=== PATIENT | male | born 1940 | race Caucasian/White ===

== ENCOUNTER 2019-08-31 13:41 | Inpatient (IN) | payer MEDICARE ==
[~2019-08-31] VITALS: Ht 173 cm; Wt 121.0 kg
[~2019-08-31 13:41] MED LIST: ACET473E5 PO; ALDACTONE25 MG PO; ASP81TEC PO; ATEN25TA PO; ATOR20TA66 PO; DILT120C85 PO; FISH1CAP15 PO; FURO80TA3 PO; GLIM2TAB PO; METF-380 PO; NITROQUICK SL; PANT40TA PO; RAMI5CAP PO; TADA2.5T PO; UBID1CAP51 PO; WARF7.5T PO
[2019-08-31 14:03] LABS: BASOPHILS # (AUTO) 0.2 10^3/uL (0.0-0.1); BASOPHILS % (AUTO) 2 % (0-10); EOSINOPHILS # (AUTO) 0.3 10^3/uL (0.0-0.3); EOSINOPHILS % (AUTO) 3 % (0-10); HEMATOCRIT 42 % (40-54); HEMOGLOBIN 14.1 G/DL (13.3-17.7); LYMPHOCYTES # (AUTO) 2.6 X 10^3 (1.0-4.0); LYMPHOCYTES % (AUTO) 29 % (12-44); MEAN CORPUSCULAR HEMOGLOBIN 29 PG (25-34); MEAN CORPUSCULAR HGB CONC 34 G/DL (32-36); MEAN CORPUSCULAR VOLUME 87 FL (80-99); MEAN PLATELET VOLUME 9.3 FL (7.4-10.4); MONOCYTES # (AUTO) 0.9 X 10^3 (0.0-1.0); MONOCYTES % (AUTO) 10 % (0-12); NEUTROPHILS # (AUTO) 4.9 X 10^3 (1.8-7.8); NEUTROPHILS % (AUTO) 56 % (42-75); PLATELET COUNT 308 10^3/uL (130-400); RED CELL DISTRIBUTION WIDTH 13.8 % (10.0-14.5); WHITE BLOOD COUNT 8.9 10^3/uL (4.3-11.0)
--- NOTE | 2019-08-31 14:05 | ED Neurological Problem ---
General Chief Complaint: Neuro-Stroke Like Symptoms Stated Complaint: STROKE LIKE SYMPTOMS Nursing Triage Note: PT STATES NUMBNESS IN LT LIP/FACE, LT ARM, AND LT LEG THAT STATRTED ABOUT 0700 THIS A.M. Nursing Sepsis Screen: No Definite Risk Source: patient Exam Limitations: no limitations History of Present Illness Date Seen by Provider: Aug 31, 2019 Time Seen by Provider: 14:05 Initial Comments To ER per private vehicle from home with reports of strokelike symptoms. He awakened this morning at about 7 AM and noticed himself to be drooling from the left side of his mouth and drinking coffee. He feels like his speech is somewhat slurred, he feels weak in his left arm and has some trouble walking because he states that his left foot drags. He has a history of atrial fibrillation and is on warfarin. He was normal when he went to bed last night. Timing/Duration: other (woke up with symptoms) Severity: moderate Associated Symptoms: slurred speech, trouble walking Allergies and Home Medications Allergies Coded Allergies: Sulfa (Sulfonamide Antibiotics) (Verified Allergy, Unknown, 06/02/06) benzocaine (Verified Allergy, Unknown, ALLERGIC TO "NED", 06/02/06) Uncoded Allergies: NED (Allergy, Unknown, 06/02/06) LOCAL ANESTHETICS (Allergy, Unknown, 06/02/06) Home Medications Acetaminophen With Codeine 1 Ml Elixir, 1 ML PO PRN, (Reported) Aspirin 81 Mg Tabec, 81 MG PO DAILY, (Reported) Atenolol 25 Mg Tablet, 25 MG PO DAILY, (Reported) Atorvastatin 20 Mg Tablet, 40 MG PO DAILY, (Reported) Diltiazem Hcl 120 Mg Capsule.sa, 240 MG PO DAILY, (Reported) Furosemide 80 Mg Tablet, 80 MG PO DAILY, (Reported) Glimepiride 2 Mg Tablet, 2 MG PO DAILY, (Reported) Metformin Hcl 1,000 Mg Tablet, 1 EACH PO DAILY, (Reported) Pantoprazole Sodium 40 Mg Tablet.dr, 40 MG PO DAILY, (Reported) Ramipril 5 Mg Capsule, 5 MG PO DAILY, (Reported) Spironolactone 25 Mg Tablet, 25 MG PO DAILY, (Reported) Tadalafil 2.5 Mg Tablet, 2.5 MG PO PRN, (Reported) Warfarin Sod 7.5 Mg Tablet, 7.5 MG PO DAILY, (Reported) Patient Home Medication List Home Medication List Reviewed: Yes Review of Systems Review of Systems Constitutional: see HPI Eyes: No Symptoms Reported Ears, Nose, Mouth, Throat: no symptoms reported Respiratory: no symptoms reported Cardiovascular: no symptoms reported Genitourinary: no symptoms reported Musculoskeletal: no symptoms reported Skin: no symptoms reported Psychiatric/Neurological: See HPI Endocrine: No Symptoms Reported Past Jzfnjqs-Gaqjol-Wyfdae Hx Patient Social History Recent Foreign Travel: No Contact w/Someone Who Travel: No Recent Infectious Disease Expo: No Physical Abuse: No Sexual Abuse: No Mistreated: No Fear: No Immunizations Up To Date Tetanus Booster (TDap): More than 5yrs Date of Pneumonia Vaccine: Jul 26, 2013 Date of Influenza Vaccine: Jul 26, 2013 Past Medical History Sleep Apnea, COPD Reproductive Disorders: No Diverticulosis, Hemorrhoids Diabetes, Non-Insulin dep Physical Exam Vital Signs Vital Signs - First Documented 08/31/19 13:51 Temp 35.4 Pulse 92 Resp 22 B/P (MAP) 154/97 (116) Pulse Ox 94 O2 Delivery Room Air Capillary Refill : Less Than 3 Seconds Height, Weight, BMI Height: '66.00" Weight: 287lbs. oz. 130.697762mf; 40.00 BMI Method:Stated General Appearance: WD/WN, no apparent distress, other (alert and oriented GCS 15) HEENT: PERRL/EOMI, normal ENT inspection Neck: non-tender, full range of motion Respiratory: normal breath sounds, no respiratory distress, no accessory muscle use Cardiovascular: no murmur, irregularly irregular Gastrointestinal: normal bowel sounds, non tender, soft Extremities: non-tender Neurologic/Psychiatric: alert, normal mood/affect, oriented x 3 Crainal Nerves: normal hearing, normal speech, PERRL Motor/Sensory: pronator drift (L) Skin: normal color, warm/dry Stroke Onset of Symptoms Date of Onset of Symptoms: Aug 31, 2019 Time of Symptom Onset: 07:00 (Woke up with symptoms) NIH Stroke Scale Assessment Level of Consciousness: 0=Alert (0), Level of Consciousness-Questions: 0=Answers both month/age (0), LOC Commands: 0=Performs both tasks (0), Visual Perkins: 0=No visual loss (0), Motor Function-Arms Right: 0=No drift (0), Motor Function-Arms Left: 1=Drift (1), Motor Function-Legs Right: 0=No drift (0), Motor Function-Legs Left: 1=Drift (1), Limb Ataxia: 0=Absent (0), Sensory: 0=Normal:no loss (0), Best Language: 0=No aphasia (0), Dysarthria: 1=Mild to moderate loss he reports some slurred speech, he is edentulous and is not wearing his teeth, I do not notice his speech to be slurred but He reports that it is (1), Extinction & Inattention: 0=No abnormality (0), Total: 3 Stroke Thrombolytic Exclusion Age 18 or Over: Yes Acute intenal hemorrhage: No History of CVA: No Uncontrolled Coagulation Defec: No Intracranial Hemorrhage: No Severe Hypertension: No GI or Bleed: No Subarachnoid Hemorrhage: No Intracranial Neoplasm/Aneurysm: No Oral Anticoagulants: Yes (stroke) Surgery or Trauma: No Puncture of Non-Compressible V: No Recent CPR: No Diabetic Hemorrhagic Retinopat: No Organ Biopsy: No Recent Obstetric Delivery: No Glucose: No Significant Hepatic Dysfunctio: No NIH Stoke Scale >22: No Pericarditis: No Improving Symptoms: No Platelets: No TPA Contraindication: Yes Progress/Results/Core Measures Results/Orders Lab Results Laboratory Tests Test 08/31/19 14:00 08/31/19 16:20 Range/Units White Blood Count 8.9 4.3-11.0 10^3/uL Red Blood Count 4.82 4.35-5.85 10^6/uL Hemoglobin 14.1 13.3-17.7 G/DL Hematocrit 42 40-54 % Mean Corpuscular Volume 87 80-99 FL Mean Corpuscular Hemoglobin 29 25-34 PG Mean Corpuscular Hemoglobin Concent 34 32-36 G/DL Red Cell Distribution Width 13.8 10.0-14.5 % Platelet Count 308 130-400 10^3/uL Mean Platelet Volume 9.3 7.4-10.4 FL Neutrophils (%) (Auto) 56 42-75 % Lymphocytes (%) (Auto) 29 12-44 % Monocytes (%) (Auto) 10 0-12 % Eosinophils (%) (Auto) 3 0-10 % Basophils (%) (Auto) 2 0-10 % Neutrophils # (Auto) 4.9 1.8-7.8 X 10^3 Lymphocytes # (Auto) 2.6 1.0-4.0 X 10^3 Monocytes # (Auto) 0.9 0.0-1.0 X 10^3 Eosinophils # (Auto) 0.3 0.0-0.3 10^3/uL Basophils # (Auto) 0.2 H 0.0-0.1 10^3/uL Prothrombin Time 21.2 H 12.2-14.7 SEC INR Comment 1.8 H 0.8-1.4 Activated Partial Thromboplast Time 33 24-35 SEC D-Dimer 0.34 0.00-0.49 UG/ML Sodium Level 132 L 135-145 MMOL/L Potassium Level 4.2 3.6-5.0 MMOL/L Chloride Level 95 L 98-107 MMOL/L Carbon Dioxide Level 27 21-32 MMOL/L Anion Gap 10 5-14 MMOL/L Blood Urea Nitrogen 9 7-18 MG/DL Creatinine 0.84 0.60-1.30 MG/DL Estimat Glomerular Filtration Rate > 60 BUN/Creatinine Ratio 11 Glucose Level 282 H 70-105 MG/DL Calcium Level 9.2 8.5-10.1 MG/DL Corrected Calcium 9.3 8.5-10.1 MG/DL Total Bilirubin 0.5 0.1-1.0 MG/DL Aspartate Amino Transf (AST/SGOT) 16 5-34 U/L Alanine Aminotransferase (ALT/SGPT) 18 0-55 U/L Alkaline Phosphatase 65 40-136 U/L Troponin I < 0.028 <0.028 NG/ML Total Protein 7.6 6.4-8.2 GM/DL Albumin 3.9 3.2-4.5 GM/DL My Orders Orders - YOLETTE KUMAR APRN Cbc With Automated Diff (08/31/19 13:55) Protime With Inr (08/31/19 13:55) Partial Thromboplastin Time (08/31/19 13:55) Comprehensive Metabolic Panel (08/31/19 13:55) Fibrin Degradation Products (08/31/19 13:55) Troponin I (08/31/19 13:55) Ua Culture If Indicated (08/31/19 13:55) Chest 1 View, Ap/Pa Only (08/31/19 13:55) Ekg Tracing (08/31/19 13:55) Nothing By Mouth (08/31/19 Dinner) Ed Iv/Invasive Line Start (08/31/19 13:55) Ed Iv/Invasive Line Start (08/31/19 13:55) O2 (08/31/19 13:55) Monitor-Rhythm Ecg Trace Only (08/31/19 13:55) Lipid Panel (09/01/19 06:00) Ct Angio Head/Neck (08/31/19 13:55) I-Stat Bedside Testing (08/31/19 13:55) Accucheck Stat ONCE (08/31/19 14:19) Ed Iv/Invasive Line Start (08/31/19 14:19) Ed Iv/Invasive Line Start (08/31/19 14:19) Vital Signs Stroke Patient Q15M (08/31/19 14:19) O2 (08/31/19 14:19) Intake & Output 06,14,22 (08/31/19 14:19) Dysphagia Screening Tool (08/31/19 14:19) Post Thrombolytic Adminstratio (08/31/19 14:19) Iohexol Injection (Omnipaque 350 Mg/Ml 1 (08/31/19 14:30) Received Contrast (Hold Metformin- Contr (08/31/19 14:30) Sodium Chloride Flush (Catheter Flush Sy (08/31/19 14:30) Ns (Ivpb) (Sodium Chloride 0.9% Ivpb Bag (08/31/19 14:30) Apixaban Tablet (Eliquis Tablet) (08/31/19 16:30) Medications Given in ED Current Medications Medications Dose Ordered Sig/Tulio Route Start Time Stop Time Status Last Admin Dose Admin Iohexol 100 ml ONCE ONCE IV 08/31/19 14:30 08/31/19 14:31 DC 08/31/19 14:48 75 ML Sodium Chloride 100 ml ONCE ONCE IV 08/31/19 14:30 08/31/19 14:31 DC 08/31/19 14:48 80 ML Vital Signs/I&O 08/31/19 13:51 Temp 35.4 Pulse 92 Resp 22 B/P (MAP) 154/97 (116) Pulse Ox 94 O2 Delivery Room Air Blood Pressure Mean: 116 POS Progress Progress Note : Progress Note Patient is excluded from TPA given symptoms of recurrent stroke last known well time being bedtime last night, additionally excluded based on use of warfarin at home. Departure Communication (Admissions) Time/Spoke to Admitting Phy: 16:[address] Villavicencio, we'll admit, 2-D echocardiogram, PT OT speech consult. 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 1542-I spoke with stroke neurologist Dr. Patrick, no thrombectomy would be in dicated, would recommend routine stroke admission for workup to exclude thrombotic event, suspects a PICA stroke. 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 Referrals: CAREY CERRATO DO (PCP/Family) Primary Care Physician YOLETTE KUMAR APRN Aug 31, 2019 14:05 POS
[2019-08-31 14:11] LABS: FIBRIN DEGRADATION PRODUCTS 0.34 UG/ML (0.00-0.49); INR 1.8 (0.8-1.4); PROTHROMBIN TIME PATIENT 21.2 SEC (12.2-14.7)
[2019-08-31 14:15] LABS: ALANINE AMINOTRANSFERASE 18 U/L (0-55); ALBUMIN 3.9 GM/DL (3.2-4.5); ALKALINE PHOSPHATASE 65 U/L (40-136); BILIRUBIN,TOTAL 0.5 MG/DL (0.1-1.0); BUN/CREATININE RATIO 11; CALCIUM 9.2 MG/DL (8.5-10.1); CARBON DIOXIDE 27 MMOL/L (21-32); CHLORIDE 95 MMOL/L (98-107); CREATININE SERUM 0.84 MG/DL (0.60-1.30); GFR ESTIMATED > 60; GLUCOSE 282 MG/DL (70-105); POTASSIUM 4.2 MMOL/L (3.6-5.0); SODIUM 132 MMOL/L (135-145); TOTAL PROTEIN 7.6 GM/DL (6.4-8.2)
[2019-08-31] MEDS ORDERED: HOLD METFORMIN - RECEIVED CONTRAST 20 ML VIAL IV SCH (14:30)
[2019-08-31] MEDS ORDERED: CATHETER FLUSH 10 ML SYR IV PRN ×2 (14:30→18:15)
[2019-08-31] MEDS ORDERED: IOHEXOL 350 MG/ML 100 ML (OMNIPAQUE 350) VIAL IV ONE (14:30)
[2019-08-31] MEDS ORDERED: NS 100 ML (IVPB) BAG IV ONE (14:30)
--- NOTE | 2019-08-31 14:48 | Diagnostic Imaging Report ---
INDICATION: Left arm numbness. COMPARISON: 05/24/2011 FINDINGS: Single frontal view of the chest demonstrates normal heart size and pulmonary vascularity. The lungs are well aerated and clear. No large pleural effusion or pneumothorax is seen. The visualized osseous structures show no acute abnormalities. IMPRESSION: 1. No acute cardiopulmonary process. Dictated by: Dictated on workstation # [id number]
--- NOTE | 2019-08-31 15:30 | Diagnostic Imaging Report ---
PROCEDURE: CT angiography of the head and CT angiography of the neck with and without contrast. TECHNIQUE: Contiguous noncontrast images were obtained from the skull base through the vertex. After intravenous contrast administration, helical CT angiography of the neck was performed. Source data was reformatted into 3D MIP projections. Delayed post contrast acquisition was also obtained. Auto Exposure Controls were utilized during the CT exam to meet ALARA standards for radiation dose reduction. INDICATION: Left-sided weakness. Onset of symptoms [address] HEAD: Pre and delayed postcontrast enhanced head CT performed. There is no intracerebral hemorrhage. No abnormal parenchymal or meningeal enhancement. There is enhancement of the major dural venous sinuses. No focal or generalized edema is apparent. There was no mass or mass effect. No abnormal extra-axial fluid collection. Orbits sinuses and calvarium within normal limits. CTA NECK: The left vertebral is dominant. The right is relatively small but nonfocal and patent. There are calcified plaques of the bilateral carotid bulbs and bifurcations without hemodynamically significant degrees of stenosis. There is tortuosity of the cervical right internal carotid, it is widely patent. The cervical left internal carotid is patent. CTA HEAD: There is occlusion of the intradural segment of the right vertebral artery. It does have some flow at its most distal aspect but this may be retrograde. The basilar and intrathecal left vertebral are patent. There is enhancement of the bilateral dispatch supervisor. There is heavy intracranial atherosclerotic calcified plaque, most notably at the cavernous segments of the bilateral carotids. The supraclinoid segments are at least moderately stenosed by roughly 50% on the left and 50-70% on the right. The A1 segments are patent. The ACOM is visualized and unremarkable. The paired anterior cerebral arteries are opacified. The middle cerebral arterial segments and primary branches are patent. No intraluminal filling defect. No large vessel occlusion or thrombus within the anterior circulation. No aneurysm. IMPRESSION: 1. CT angiogram neck: No hemodynamically significant stenosis. Dominant left vertebral and relatively small right vertebral appear nonfocal in the neck. 2. CT angiogram head: Atherosclerotic disease and acuity indeterminate. Occlusion of the intrathecal right vertebral at its proximal and middle one-thirds. Patency of the intrathecal left vertebral and basilar. 3. Right greater than left carotid calcified plaques without high-grade stenosis. The anterior circulation shows no thrombus or large vessel occlusion. Dictated by: Dictated on workstation # [id number]
[2019-08-31] MEDS ORDERED: APIXABAN 5 MG (ELIQUIS) TABLET PO ONE (16:30)
[2019-08-31 16:33] LABS: BILIRUBIN,URINE NEGATIVE (NEGATIVE); CLARITY,URINE CLEAR; COLOR,URINE YELLOW; GLUCOSE, URINE (UA) 2+ (NEGATIVE); KETONES,URINE NEGATIVE (NEGATIVE); LEUKOCYTE ESTERASE ,URINE 1+ (NEGATIVE); NITRITE,URINE NEGATIVE (NEGATIVE); PH,URINE 7 (5-9); PROTEIN,URINE 1+ (NEGATIVE)
[2019-08-31 16:55] LABS: BACTERIA,URINE TRACE /HPF
--- NOTE | 2019-08-31 18:10 | NUR ---
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 Patient Rights given to patient in the handbook. KARI KATZ verbalizes understanding that [facility] is not responsible for the loss or damage to any personal effects or valuables that are kept in the patients posession during their hospitalization. KARI KATZ verbalizes understanding of Interdisciplinary Patient Education. Patient and/or family were informed about the Rapid Response Team and its purpose.
[2019-08-31 18:32] VITALS: BP 144/71
[2019-08-31] MEDS: NS IV 1000 ML 1,000 ML IV SCH (19:05)
[2019-08-31 19:16] VITALS: BP 140/71
[2019-08-31] MEDS ORDERED: APIXABAN 5 MG (ELIQUIS) TABLET PO SCH (21:00)
[2019-08-31] MEDS: inSUlin ASPART (NovoLOG) 1 UNIT/0.01 ML (CHARGE PER UNIT) SC SCH (21:42)
[2019-09-01 00:15] VITALS: BP 140/70
[2019-09-01 04:30] VITALS: BP 125/58
[2019-09-01] MEDS: NS IV 1000 ML 1,000 ML IV SCH ×2 (05:23→14:35)
[2019-09-01 05:49] LABS: BASOPHILS # (AUTO) 0.1 10^3/uL (0.0-0.1); BASOPHILS % (AUTO) 1 % (0-10); EOSINOPHILS # (AUTO) 0.3 10^3/uL (0.0-0.3); EOSINOPHILS % (AUTO) 5 % (0-10); HEMATOCRIT 40 % (40-54); LYMPHOCYTES # (AUTO) 1.7 X 10^3 (1.0-4.0); LYMPHOCYTES % (AUTO) 25 % (12-44); MEAN CORPUSCULAR HEMOGLOBIN 29 PG (25-34); MEAN CORPUSCULAR HGB CONC 32 G/DL (32-36); MEAN CORPUSCULAR VOLUME 88 FL (80-99); MEAN PLATELET VOLUME 9.1 FL (7.4-10.4); MONOCYTES # (AUTO) 0.7 X 10^3 (0.0-1.0); MONOCYTES % (AUTO) 10 % (0-12); NEUTROPHILS # (AUTO) 4.1 X 10^3 (1.8-7.8); NEUTROPHILS % (AUTO) 59 % (42-75); PLATELET COUNT 280 10^3/uL (130-400); RED CELL DISTRIBUTION WIDTH 13.9 % (10.0-14.5)
[2019-09-01] MEDS: inSUlin ASPART (NovoLOG) 1 UNIT/0.01 ML (CHARGE PER UNIT) SC SCH ×4 (06:07→21:34)
[2019-09-01 06:10] LABS: ALANINE AMINOTRANSFERASE 19 U/L (0-55); ALBUMIN 3.5 GM/DL (3.2-4.5); ALKALINE PHOSPHATASE 57 U/L (40-136); BILIRUBIN,TOTAL 0.5 MG/DL (0.1-1.0); BUN/CREATININE RATIO 9; CALCIUM 8.6 MG/DL (8.5-10.1); CARBON DIOXIDE 26 MMOL/L (21-32); CHLORIDE 102 MMOL/L (98-107); CHOLESTEROL 137 MG/DL (< 200); CREATININE SERUM 0.75 MG/DL (0.60-1.30); GFR ESTIMATED > 60; GLUCOSE 215 MG/DL (70-105); HDL CHOLESTEROL 33 MG/DL (40-60); SODIUM 139 MMOL/L (135-145); TOTAL PROTEIN 6.8 GM/DL (6.4-8.2); TRIGLYCERIDES 121 MG/DL (<150); VLDL CHOLESTEROL 24 MG/DL (5-40)
--- NOTE | 2019-09-01 07:45 | NUR ---
CALLED [facility] ICU TO CHECK ON PT'S HR. PT'S HR WAS CHANGING BETWEEN 120 AND 137. HR WITH VITALS WAS 108. ICU TO CALL IF PT'S HR ELEVATES AGAIN. PT IS UP AND EATING BREAKFAST AND IS ASYMPTOMATIC
[2019-09-01 08:30] VITALS: BP 140/74
--- NOTE | 2019-09-01 10:24 | History & Physical-Hospitalist ---
History of Present Illness HPI/Chief Complaint patient is a 79-year-old male with past medical history of coronary artery disease, atrial fibrillation, [id number] diabetes type II who presented to the emergency department after waking up with slurred speech. He reports he woke up at 7 o'clock yesterday morning and noticed that he was drooling from the left side of his mouth and thought his speech was somewhat slurred. despite this he drove to the post office and on walking and he felt that he had some numbness on the left side of his body and difficulty walking. He made into the post office but then fell into a chair as his balance was off. His vitamin called for EMS to bring him for evaluation. He felt that his left arm was weak and that his left foot was dragging. In the emergency department he was evaluated for stroke were CTA of his head, right vertebral artery occlusion. If his presenting NIH scored as 3. This morning he states that he feels better and his weakness is improving but that his speech is not as clear as it normally is. He denies any history of previous stroke. Source: patient Date Seen 09/01/19 Time Seen by a Provider: 10:18 Attending Physician Misty Botello MD PCP Carey Slaeem DO Referring Physician Date of Admission Aug 31, 2019 at 16:13 Home Medications & Allergies Home Medications Reviewed patient Home Medication Reconciliation performed by pharmacy medication reconciliations forest technician and/or nursing. Patients Allergies have been reviewed. Allergies Allergies Coded Allergies Sulfa (Sulfonamide Antibiotics) (Verified Allergy, Unknown, 06/02/06) benzocaine (Verified Allergy, Unknown, ALLERGIC TO "NED", 06/02/06) Uncoded Allergies NED ( Allergy, Unknown, 06/02/06) LOCAL ANESTHETICS ( Allergy, Unknown, 06/02/06) Past Seoortk-Wxbzyp-Oxzhll Hx Past Med/Social Hx: Reviewed Nursing Past Med/Soc Hx Patient Social History Marrital Status: Alcohol Use: Denies Use Recreational Drug Use: No Smoking Status: Former Smoker Former Smoker, Quit: Aug 26, 1980 Type Used: Cigarettes Recent Foreign Travel: No Contact w/other who traveled: No Recent Hopitalizations: No Recent Infectious Disease Expo: No Immunizations Up To Date Tetanus Booster (TDap): More than 5yrs Date of Pneumonia Vaccine: Sep 30, 2017 Date of Influenza Vaccine: Aug 11, 2019 Past Medical History Surgeries: Abdominal, Coronary Stent, Orthopedic Cardiac: Atrial Fibrillation, Chronic Edema/Swelling, Coronary Artery Disease, Heart Attack, High Cholesterol, Hypertension Neurological: Neuropathy Reproductive: No Gastrointestinal: Diverticulosis, Hemorrhoids Endocrine: Diabetes, Non-Insulin dep History of Blood Disorders: No Family History Reviewed Nursing Family Hx Review of Systems Constitutional: No chills, No fever; weakness EENTM: see HPI Respiratory: No cough, No dyspnea on exertion, No short of breath Cardiovascular: No chest pain; edema (chronic), Hx of Intervention; No palpitations Gastrointestinal: No abdominal pain, No diarrhea, No loss of appetite, No nausea, No vomiting Genitourinary: No decreased output, No discharge, No dysuria, No frequency Musculoskeletal: see HPI, muscle weakness Skin: no symptoms reported Psychiatric/Neurological: No Symptoms Reported Physical Exam Physical Exam Vital Signs Vital Signs - First Documented 08/31/19 13:51 Temp 35.4 Pulse 92 Resp 22 B/P (MAP) 154/97 (116) Pulse Ox 94 O2 Delivery Room Air Capillary Refill : Less Than 3 SecondsLess Than 3 Seconds Height, Weight, BMI Height: '66.00" Weight: 287lbs. oz. 130.586950qc; 40.42 BMI Method:Stated General Appearance: No Apparent Distress, Chronically ill, Obese HEENT: PERRL/EOMI, Moist Mucous Membranes; No Scleral Icterus (L), No Scleral Icterus (R) Neck: Normal Inspection, Supple; No JVD, No Thyromegaly Respiratory: Lungs Clear, No Accessory Muscle Use, No Respiratory Distress Cardiovascular: No Murmur, Normal Peripheral Pulses, Irregularly Irregular Gastrointestinal: Normal Bowel Sounds, Non Tender, Soft Extremity: Swelling (bilateral) Neurologic/Psychiatric: Alert, Oriented x3, Normal Mood/Affect; No Facial Droop; Motor Weakness (LUE 4/5, LLE 4+/5); No Sensory Deficit; Other (slurred speech though intellgible) Skin: Other (venous stasis dermatitis noted) Results Results/Procedures Labs Laboratory Tests 08/31/19 14:00 09/01/19 05:35 Patient resulted labs reviewed. 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 Dysphasia CTA revealed occlusion Stroke neurology states no indication for TPA or intervention Echo ordered cardiology consulted, appreciate recs Telemetry PT/OT/ST MANE A-fib CAD Cardiolgoy consulted Continue ASA, switch to Eliquis Telemetry NIDDMII Hold metformin for contrast yesterday SSI Diagnosis/Problems Diagnosis/Problems (1) 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
[2019-09-01] MEDS ORDERED: APIXABAN 5 MG (ELIQUIS) TABLET PO NR (10:45)
[2019-09-01] MEDS ORDERED: ASPIRIN E.C. 81 MG (ECOTRIN) TAB PO NR (10:45)
--- NOTE | 2019-09-01 11:50 | Consultation-Cardiology ---
HPI-Cardiology Cardiology Consultation: Date of Consultation 09/01/19 Time Seen by a Provider: 09:15 Date of Admission Attending Physician Misty Botello MD Admitting Physician Alonzo Saleem DO Consulting Physician CRISTIANO MIN MD, MA, FACP, FACC, FSCAI, CCDS HPI: Chief Complaint: CC: L face and L body numbness HPI 79 yo man who awoke with L facial numbness and some weakness of the L and mild numbness of the L upper and lower limbs yesterday. Facial weakness has resolved. Numbness has improved, but not resolved. Has been diagnosed with CVA. We have been asked to see him in cardiology consult because of chronic A Fib. He presented with sub-therapeutic INR of 1.8 (on chronic warfarin therapy) Has chronic exertional shortness of breath and bilat leg swelling Does not report cp or palp or syncope Review of Systems-Cardiology Review of Systems Constitutional: malaise, tiredness; No weight loss, No weight gain Eyes: No vision change Ears/Nose/Throat: No ear discharge, No nasal drainage, No recent hearing loss Respiratory: As described under HPI Cardiovascular: As described under HPI Gastrointestinal: No diarrhea, No nausea, No vomiting Genitourinary: No dysuria, No hematuria, No urine frequency changes Musculoskeletal: back pain (chronic) Skin: No rash, No ulcerations Psychiatric/Neurological: As described under HPI Hematologic: No bleeding abnormalities QHN-Vbkemp-Rwkoqe Hx Patient Social History Marrital Status: Alcohol Use: Denies Use Recreational Drug Use: No Smoking Status: Former Smoker Type Used: Cigarettes Recent Foreign Travel: No Recent Infectious Disease Expo: No Immunizations Up To Date Tetanus Booster (TDap): More than 5yrs Date of Pneumonia Vaccine: Sep 30, 2017 Date of Influenza Vaccine: Aug 11, 2019 Past Medical History PMH As described under Assessment. Family Medical History Family Medical History: Does not report fam h/o early CAD or SCD Allergies and Home Medications Allergies Coded Allergies: Sulfa (Sulfonamide Antibiotics) (Verified Allergy, Unknown, 06/02/06) benzocaine (Verified Allergy, Unknown, ALLERGIC TO "NED", 06/02/06) Uncoded Allergies: NED (Allergy, Unknown, 06/02/06) LOCAL ANESTHETICS (Allergy, Unknown, 06/02/06) Home Medications Acetaminophen With Codeine 1 Ml Elixir, 1 ML PO PRN, (Reported) Aspirin 81 Mg Tabec, 81 MG PO DAILY, (Reported) Atenolol 25 Mg Tablet, 25 MG PO DAILY, (Reported) Atorvastatin 20 Mg Tablet, 40 MG PO DAILY, (Reported) Diltiazem Hcl 120 Mg Capsule.sa, 240 MG PO DAILY, (Reported) Furosemide 80 Mg Tablet, 80 MG PO DAILY, (Reported) Glimepiride 2 Mg Tablet, 2 MG PO DAILY, (Reported) Metformin Hcl 1,000 Mg Tablet, 1 EACH PO DAILY, (Reported) Pantoprazole Sodium 40 Mg Tablet.dr, 40 MG PO DAILY, (Reported) Ramipril 5 Mg Capsule, 5 MG PO DAILY, (Reported) Spironolactone 25 Mg Tablet, 25 MG PO DAILY, (Reported) Tadalafil 2.5 Mg Tablet, 2.5 MG PO PRN, (Reported) Warfarin Sod 7.5 Mg Tablet, 7.5 MG PO DAILY, (Reported) Patient Home Medication List Home Medication List Reviewed: Yes Physical Exam-Cardiology Physical Exam Vital Signs/I&O 09/01/19 09/01/19 09/01/19 09/01/19 00:15 01:00 04:30 07:02 Temp 36.8 36.2 Pulse 102 97 115 127 Resp 20 22 B/P (MAP) 140/70 (93) 125/58 (80) Pulse Ox 97 96 O2 Delivery Room Air Room Air 09/01/19 09/01/19 08:00 08:30 Temp 36.5 Pulse 108 Resp 18 B/P (MAP) 140/74 (96) Pulse Ox 96 92 O2 Delivery Room Air Room Air 09/01/19 00:00 Intake Total 720 ml Balance 720 ml Capillary Refill : Less Than 3 SecondsLess Than 3 Seconds Constitutional: AAO x 3, well-developed, well-nourished HEENT: EOMI, hearing is well preserved; No xanthelasmas are seen Neck: carotid pulses are 2 + bilaterally, with good upstrokes Respiratory: No accessory muscle use; other (fair to good, bilateral air entry that is diminished at the bases) Cardiovascular: irregularly irregular, S1 and S2, systolic murmur (soft JOSEF at card base) Gastrointestinal: No tender; soft; No guarding, No rebound; audible bowel sounds Extremities: swelling (moderate, bilateral, pitting and non-pitting edema of the legs); No clubbing, No cyanosis Neurologic/Psychiatric: oriented x 3, other (moves all limbs equally at the time of this exam) Skin: No rash, No ulcerations Data Review Labs Laboratory Tests 08/31/19 14:00: White Blood Count 8.9, Red Blood Count 4.82, Hemoglobin 14.1, Hematocrit 42, Mean Corpuscular Volume 87, Mean Corpuscular Hemoglobin 29, Mean Corpuscular Hemoglobin Concent 34, Red Cell Distribution Width 13.8, Platelet Count 308, Mean Platelet Volume 9.3, Neutrophils (%) (Auto) 56, Lymphocytes (%) (Auto) 29, Monocytes (%) (Auto) 10, Eosinophils (%) (Auto) 3, Basophils (%) (Auto) 2, Neutrophils # (Auto) 4.9, Lymphocytes # (Auto) 2.6, Monocytes # (Auto) 0.9, Eosinophils # (Auto) 0.3, Basophils # (Auto) 0.2H, Prothrombin Time 21.2H, INR Comment 1.8H, Activated Partial Thromboplast Time 33, D-Dimer 0.34, Sodium Level 132L, Potassium Level 4.2, Chloride Level 95L, Carbon Dioxide Level 27, Anion Gap 10, Blood Urea Nitrogen 9, Creatinine 0.84, Estimat Glomerular Filtration Rate > 60, BUN/Creatinine Ratio 11, Glucose Level 282H, Calcium Level 9.2, Xu ected Calcium 9.3, Total Bilirubin 0.5, Aspartate Amino Transf (AST/SGOT) 16, Alanine Aminotransferase (ALT/SGPT) 18, Alkaline Phosphatase 65, Troponin I < 0.028, Total Protein 7.6, Albumin 3.9 08/31/19 16:20: Urine Color YELLOW, Urine Clarity CLEAR, Urine pH 7, Urine Specific [place] 1.005L, Urine Protein 1+H, Urine Glucose (UA) 2+H, Urine Ketones NEGATIVE, Urine Nitrite NEGATIVE, Urine Bilirubin NEGATIVE, Urine Urobilinogen NORMAL, Urine Leukocyte Esterase 1+H, Urine RBC (Auto) NEGATIVE, Urine RBC NONE, Urine WBC NONE, Urine Crystals NONE, Urine Bacteria TRACE, Urine Casts NONE, Urine Mucus NEGATIVE, Urine Culture Indicated NO 08/31/19 20:39: Glucometer 296H 09/01/19 05:35: White Blood Count 7.0, Red Blood Count 4.56, Hemoglobin 13.0L, Hematocrit 40, Mean Corpuscular Volume 88, Mean Corpuscular Hemoglobin 29, Mean Corpuscular Hemoglobin Concent 32, Red Cell Distribution Width 13.9, Platelet Count 280, Mean Platelet Volume 9.1, Neutrophils (%) (Auto) 59, Lymphocytes (%) (Auto) 25, Monocytes (%) (Auto) 10, Eosinophils (%) (Auto) 5, Basophils (%) (Auto) 1, Neutrophils # (Auto) 4.1, Lymphocytes # (Auto) 1.7, Monocytes # (Auto) 0.7, Eosinophils # (Auto) 0.3, Basophils # (Auto) 0.1, Sodium Level 139, Potassium Level 4.0, Chloride Level 102, Carbon Dioxide Level 26, Anion Gap 11, Blood Urea Nitrogen 7, Creatinine 0.75, Estimat Glomerular Filtration Rate > 60, BUN/Creatinine Ratio 9, Glucose Level 215H, Calcium Level 8.6, Corrected Calcium 9.0, Total Bilirubin 0.5, Aspartate Amino Transf (AST/SGOT) 20, Alanine Ami notransferase (ALT/SGPT) 19, Alkaline Phosphatase 57, Total Protein 6.8, Albumin 3.5, Triglycerides Level 121, Cholesterol Level 137, LDL Cholesterol Direct 83, VLDL Cholesterol 24, HDL Cholesterol 33L 09/01/19 05:50: Glucometer 217H 09/01/19 11:12: Glucometer 237H Laboratory Tests 08/31/19 14:00 09/01/19 05:35 A/P-Cardiology Assessment/Admission Diagnosis CVA consisting of L hemiparesis on 08/31/19. CT angio of head and neck on 08/31: Occlusion of the intrathecal right vertebral at its proximal and middle one-thirds. Patency of the intrathecal left vertebral and basilar. Right greater than left carotid calcified plaques without high-grade stenosis. The anterior circulation shows no thrombusor large vessel occlusion. Chronic permanent atrial fibrillation. Chronic anticoagulation for stroke prophylaxis with warfarin has been managed by his pcp Dr. Saleem Chronic exertional dyspnea, probably multifactorial: history of chronic obstructive pulmonary disease, probably asthma and has had intermittent congestive heart failure, but congestive heart failure currently appears controlled. Postural dizziness, resolved following reduction in DEEP inhibitors. Chronic bilateral lower extremity edema, likely related to venous insufficiency Chronic obstructive pulmonary disease responsive to bronchodilator therapy based on pulmonary function tests of 03/20/10. He is relatively intolerant to bronchodilator therapy. Coronary artery disease with a history of stenting of the left circumflex artery in October 2002. Last cardiac catheterization of February 2010 shows moderate ectasia of the coronary vessels with mild diffuse coronary plaque. There is a widely patent stent in the proximal and mid left circumflex artery. MPI of 10/10/14 showed no ischmia or infarction and LVEF was 80% Echo of 10/08 showed LVEF 55-60%, mod TR, mild MR, mod enlargement of LA, PASP 40 mmHg. Hypertension with hypertensive cardiovascular disease. No significant renal artery stenosis on renal artery angiography of August 2004. Moderate mitral regurgitation. Ankylosing spondylitis. Hyperlipidemia being treated with lovastatin. The patient has tolerated that well on a chronic basis. This is followed by Dr. Saleem Maturity onset diabetes mellitus. Mild carotid arterial disease without evidence of hemodynamic or significant stenosis per carotid ultrasound of 08/10/15 Discussion and Recomendations * I had a detailed discussion with Dr Azevedo (ER phsician) last night and with Dr Botello (Attending) this morning * Speaking purely from a cardiac standpoint, we recommend oral anticoag for permanent A Fib and ASA for CAD. Given that he seems to have had throm boembolic stroke despite being on warfarin, we recommend consider changing to apixaban * Monitor labs Clinical Quality Measures DVT/VTE Risk/Contraindication: Risk Factor Score Per Nursin RFS Level Per Nursing on Admit: 4+=Very High Stroke: Date of last known well: Aug 31, 2019 Time of last known well: 07:00 (Woke up with symptoms) CRISTIANO MIN MD FACP FAC CCDS Sep 01, 2019 11:49 POS
--- NOTE | 2019-09-01 12:10 | ST Cognitive Linguistic Eval ---
Speech Evaluation-General Medical Diagnosis CVA Onset Date: Aug 31, 2019 Therapy Diagnosis Therapy Diagnosis: Cognitive-communication Referral Referring Physician: Dr. Botello Medical History Reviewed History: Yes Speech PLF-Current Status Prior Level of Function Patient was independent with his daily needs. Subjective Patient was pleasant during the cognitive-linguistic assessment and informal speech tasks. Language Eval: Auditory Comprehends Simple Yes/No Ques: Functional Indent/Objects Multiple [place]: Functional Ident/Pics in Multiple [place]: Functional Follows 1-Step Commands: Functional Follows Complex Directions: Functional Follows General Conversations: Functional Language Eval: Verbal Language Completes Spontaneous Greeting: Functional Produces Auto, Serial Info: Functional Imitates Simple Words/Phrases: Functional Word Finding: Functional Requests Basic Needs: Functional States Basic Personal Info: Functional Expresses Complex Ideas: Functional Objective Cognitive Domain Attention: WNL Memory: WNL Problem Solving: Functional Executive Functions: WNL Visuospatial Skills: WNL Composite Severity Rating: WNL Objective Formal/Standardized Tests Speech, Language and Cognitive Assessment Tool Oral Motor/Speech Production Patient is edentulous, however speech is intelligible Impression The patient is a 79 year old male who [place] The patient was admitted to the hospital via ED. The patient was given the Speech, Language, and Cognitive Assessment tool with normal range of function. Patient states he has mild tingling on the left side of his mouth. Despite being edentulous the patient is eating regular textured foods without difficulty. He states he can even eat steak without teeth. The patient was pleasant and cooperative with the assessment and informal speech tasks. Speech Patient Assess Expression of Ideas/Wants: Expression (4) Understanding Verbal Content: Understands (4) Brief Interview-Mental Status: Yes Repetition of Three Words: Three (3) Temporal Orientation: Year: Correct (3) Temporal Orientation: Month: Accurate within 5 days(2) Temporal Orientation: Day: Correct (1) Recall : Wear to say "Sock": Yes,after cueing (1) Recall : Color: Yes, after cueing (1) Recall : Bed: Yes,after cueing (1) Memory/Recall Ability: Current season, That he or she is in a hsp/hsp unit Speech-Plan Patient/Family Goals Patient/Family Goals: Patient plans on returning home upon discharge. Treatment Plan Speech Therapy Treatment Plan: Discontinue ST Patient does not warrant skilled ST at this time as his speech issues have mostly resolved. Treatment Duration: Sep 01, 2019 Frequency: 1 time per week Estimated Hrs Per Day: .25 hour per day Rehab Potential: Good Barriers to Learning: None identified Pt/Family Agrees to Plan: Yes Safety Risks/Education Teaching Recipient: Patient Teaching Methods: Demonstration, Discussion Response to Teaching: Verbalize Understanding, Return Demonstration Education Topics Provided: Safety within his room and with oral intake. Time Speech Therapy Time In: 12:00 Speech Therapy Time Out: 12:15 Total Billed Time: 15 Billed Treatment Time 1, SPSNDCOMP BONIFACIO Lim Sep 01, 2019 12:10 POS
[2019-09-01 12:11] VITALS: BP 124/69
--- NOTE | 2019-09-01 12:26 | ST Cognitive Linguistic Eval ---
Speech Evaluation-General Medical Diagnosis CVA Onset Date: Aug 31, 2019 Therapy Diagnosis Therapy Diagnosis: Cognitive-communication Referral Referring Physician: Dr. Botello Reason for Referral: Evaluation/Treatment Medical History Reviewed History: Yes Social History Current Living Status: Alone Speech PLF-Current Status Prior Level of Function Patient was independent with all of his daily needs. Subjective Patient was pleasant and cooperative with the assessment and informal speech tasks. Language Eval: Auditory Comprehends Simple Yes/No Ques: Functional Indent/Objects Multiple [place]: Functional Ident/Pics in [place]: Functional Follows 1-Step Commands: Functional Follows Complex Directions: Functional Follows General Conversations: Functional Language Eval: Verbal Language Completes Spontaneous Greeting: Functional Produces Auto, Serial Info: Functional Imitates Simple Words/Phrases: Functional Word Finding: Functional Requests Basic Needs: Functional States Basic Personal Info: Functional Expresses Complex Ideas: Functional Objective Cognitive Domain Attention: WNL Memory: WNL Problem Solving: Functional Executive Functions: WNL Visuospatial Skills: WNL Composite Severity Rating: WNL Objective Formal/Standardized Tests Speech, Language, and Cognitive Assessment Tool Results Patient presents within normal range of function. Oral Motor/Speech Production Patient is edentulous, intelligibility is WNL, Patient states he still has a slight tingling on the left side of his mouth Impression Patient is a pleasant 79 year old male who was admitted via ED s/p CVA. Patient was reported to have slurred speech and drooling on the left side. These issues have resolved with the exception of slight tingling on the left side of his mouth. Patient completed the Speech, Language and Cognitive Assessment Tool without difficulty. Patient's speech is intelligible for expression of wants/needs. The patient eats regular textured foods without difficulty as well. He states he can even eat steak without teeth. Speech-Plan Patient/Family Goals Patient/Family Goals: Patient plans on returning to his home upon discharge. Treatment Plan Speech Therapy Treatment Plan: Discontinue ST Patient does not require further skilled ST at this time. Treatment Duration: Sep 01, 2019 Frequency: 1 time per week Estimated Hrs Per Day: .25 hour per day Rehab Potential: Good Barriers to Learning: None identified Pt/Family Agrees to Plan: Yes Safety Risks/Education Teaching Recipient: Patient Teaching Methods: Demonstration, Discussion Response to Teaching: Verbalize Understanding, Return Demonstration Education Topics Provided: Safety within his room and with oral intake. Time Speech Therapy Time In: 12:00 Speech Therapy Time Out: 12:15 Total Billed Time: 15 Billed Treatment Time 1, YORDANNDBONIFACIO Lowry Sep 01, 2019 12:26 POS
[2019-09-01] MEDS ORDERED: WARF-48 PO ×2 (13:27)
[2019-09-01] MEDS ORDERED: ASPI-983 PO (13:27)
[2019-09-01] MEDS ORDERED: NITR0.4T39 SL (13:27)
[2019-09-01] MEDS ORDERED: FISH1CAP15 PO (13:27)
[2019-09-01] MEDS ORDERED: METO100T12 PO (13:27)
[2019-09-01] MEDS ORDERED: SPIR25TA5 PO (13:27)
[2019-09-01] MEDS ORDERED: ATOR20TA66 PO (13:27)
[2019-09-01] MEDS ORDERED: FURO20TA4 PO (13:27)
[2019-09-01] MEDS ORDERED: NAPR220T66 PO (13:28)
--- NOTE | 2019-09-01 13:29 | NUR ---
SPOKE WITH THE PATIENT ABOUT HIS MEDICATIONS. HE HAD A LIST IN HIS WALLET AND I COMPARED IT WITH THE EXT MED HX. HE VERIFIED HOW HE TAKES EACH MEDICATION. HE TAKES THE FOLLOWING OTC: ASPIRIN 81MG HS FISH OIL DAILY ALEVE PRN HE STATES HE ALSO HAS NITROGLYCERIN ON HAND IF NEEDED.
--- NOTE | 2019-09-01 14:10 | Physical Therapy Evaluation ---
PT Evaluation-General Medical Diagnosis Admission Date Aug 31, 2019 at 16:13 Medical Diagnosis: CVA Onset Date: Aug 31, 2019 Therapy Diagnosis Therapy Diagnosis: weakness, debility Height/Weight Height (Inches): 66.00 Weight (Pounds): 287 Precautions Precautions/Isolations: Fall Prevention, Standard Precautions Weight Bear Status Right Lower Extremity: Right Weight Bearing/Tolerated Left Lower Extremity: Left Weight Bearing/Tolerated Referral Physician: Rosmery Reason for Referral: Evaluation/Treatment Medical History Pertinent Medical History: Atrial Fib, CAD, DM, HTN, Neuropathy Current History ER from home secondary to stroke like symptoms. Drooling, slurring, L sided weakness. Reviewed History: Yes Social History Home: Single Level Current Living Status: Alone Prior Prior Level of Function SCALE: Activities may be completed with or without assistive devices. 1-Zfpdgwljxm-hpbkbkw completes the activity by him/herself with no assistance from a helper. 5-Set-up or Clean-up Assistance-helper sets up or cleans up; patient completes activity. [place] assists only prior to or following the activity. 4-Supervision or Touching Assistance-helper provides verbal cues and/or touching/steadying and/or contact guard assistance as patient completes activity. Assistance may be provided throughout the activity or intermittently. 3-Partial/Moderate Assistance-helper does LESS THAN HALF the effort. [place] lifts, holds or supports trunk or limbs, but provides less than half the effort. 2-Substantial/Maximal Assistance-helper does MORE THAN HALF the effort. [place] lifts or holds trunk or limbs and provides more than half the effort. 0-Crqizmfzl-nzlwrc does ALL the effort. Patient does none of the effort to complete the activity. Or, the assistance of 2 or more helpers is required for the patient to complete the activity. If activity was not attempted, code reason: 7-Patient Refused. 9-Not Applicable-not attempted and the patient did not perform the activity before the current illness, exacerbation or injury. 10-Not Attempted due to Environmental Limitations-(lack of equipment, weather restraints, etc.). 88-Not Attempted due to Medical Conditions or Safety Concerns. Bed Mobility: 6 Transfers (B,C,W/C): 6 Gait: 6 Stairs: 6 Indoor Mobility (Ambulation): Independent Stairs: Independent Prior Devices Use: None PT Evaluation-Current Subjective Patient agrees to PT at this time. Patient states he is feeling much better and having no pain. He reports L side is still feeling a little weaker than R side. Pain Numeric Pain Scale: 0-No Pain Location: No Pain Reported Objective Patient Orientation: Normal For Age Problem Solving: Fair Attachments: IV ROM/Strength ROM Lower Extremities WFL Strength Lower Extremities R: grossly 4/5 L: grossly 3+/5 Integumentary/Posture Integumentary See nursing notes Bowel Incontinence: No Bladder Incontinence: No Posture WFL Neuromuscular (Tone, Coordination, Reflexes) Grossly intact Sensory Vision: Functional Hearing: Functional Transfers Roll Left to Right (QC): 6 Sit to Lying (QC): 6 Lying to Sitting/Side of Bed(Q: 4 Sit to Stand (QC): 5 Gait Does the Patient Walk?: Yes Mode of Locomotion: Walk Anticipated Mode of Locomotion: Walk Walk 10 feet (QC): 4 Walk 50 ft with 2 Turns(QC): 4 Walk 150 ft (QC): 4 Distance: 250' Gait Assistive Device: FWW Comments/Gait Description Slight weakness in L side, notes occasional LOB. Balance Sitting Static: Normal Sitting Dynamic: Normal Standing Static: Normal Standing Dynamic: Normal Assessment/Needs Patient able to perform bed mobility with minimal assistance only required to finish sitting up in bed. Patient strength testing showed slight weakness in LLE compared to RLE, especially hip flexion. Patient ambulated 250' with FWW with occasional LOB if trying to reach outside of SEAN. Patient returned to bed without assistance at conclusion of treatment. Rehab Potential: Fair PT Interlocking Installer Goals Interlocking Installer Goals PT Interlocking Installer Goals Time Frame: Sep 12, 2019 Sit to Lying (QC): 6 Lying-Sitting on Side/Bed(QC): 6 Sit to Stand (QC): 6 Roll Left to Right (QC): 6 Chair/Piu-kv-Qranj Xfer(QC): 6 Car Transfer (QC): 6 Does the Patient Walk: Yes Distance: 300' Walk 10 feet (QC): 6 Walk 10ft-Uneven Surface(QC): 6 Walk 50ft with 2 Turns (QC): 6 Walk 150 ft (QC): 6 Gait Assistive Device: FWW PT Plan Problem List Problem List: Activity Tolerance, Functional Strength, Safety, Balance, Gait, Transfer, Bed Mobility Treatment/Plan Treatment Plan: Continue Plan of Care Treatment Plan: Bed Mobility, Education, Functional Activity Liz, Functional Strength, Gait, Safety, Therapeutic Exercise, Transfers Treatment Duration: Sep 12, 2019 Frequency: 6 times per week Estimated Hrs Per Day: .25 hour per day Patient and/or Family Agrees t: Yes Time/GCodes Time In: 1306 Time Out: 1321 Total Billed Treatment Time: 15 Total Billed Treatment 1 visit EVLowC 15min CORNELIUS COSME PT Sep 01, 2019 14:10 POS
--- NOTE | 2019-09-01 15:28 | Occupational Therapy Eval ---
OT Evaluation-General/PLF Medical Diagnosis Admission Date Aug 31, 2019 at 16:13 Medical Diagnosis: CVA Onset Date: Aug 31, 2019 Therapy Diagnosis Therapy Diagnosis: Decreased ADL function Height/Weight Height (Inches): 66.00 Weight (Pounds): 287 Precautions Precautions/Isolations: Fall Prevention, Standard Precautions Weight Bear Status Weight Bearing Restriction: Weight Bearing/Tolerated Referral Physician: Rosmery Referral Reason: Activity Tolerance, Self Care, Evaluation/Treatment, Strengthening/ROM Medical History Pertinent Medical History: Atrial Fib, CAD, DM, HTN, Neuropathy Additional Medical History CAD, A fib, DM II, coronary stent, chronic swelling BLE, heart attack, high cholesterol, HTN Current History Pt was experiencignn dysphasia, drooling and weak/ numbness of L side. Admitted, R vertebral artery blockage. Reviewed History: Yes Social History Home: Single Level Current Living Status: Alone Entry Into Home: Ramp Steps Into Home: 0 Steps Inside Home: 0 ADL-Prior Level of Function SCALE: Activities may be completed with or without assistive devices. 3-Wfzvmcvtkp-lhkrxnw completes the activity by him/herself with no assistance from a helper. 5-Set-up or Clean-up Assistance-helper sets up or cleans up; patient completes activity. [place] assists only prior to or following the activity. 4-Supervision or Touching Assistance-helper provides verbal cues and/or touching/steadying and/or contact guard assistance as patient completes activity. Assistance may be provided throughout the activity or intermittently. 3-Partial/Moderate Assistance-helper does LESS THAN HALF the effort. [place] lifts, holds or supports trunk or limbs, but provides less than half the effort. 2-Substantial/Maximal Assistance-helper does MORE THAN HALF the effort. [place] lifts or holds trunk or limbs and provides more than half the effort. 9-Pcyjbhhjz-vjnmay does ALL the effort. Patient does none of the effort to complete the activity. Or, the assistance of 2 or more helpers is required for the patient to complete the activity. If activity was not attempted, code reason: 7-Patient Refused. 9-Not Applicable-not attempted and the patient did not perform the activity before the current illness, exacerbation or injury. 10-Not Attempted due to Environmental Limitations-(lack of equipment, weather restraints, etc.). 88-Not Attempted due to Medical Conditions or Safety Concerns. Self Care: Independent Functional Cognition: Independent DME/Equipment: Bath Chair, Tub/Shower DME/Equipment Comments Pt was IND without AE. Pt owns cane (states he was using day of weakness), has shower chair through he has not been using it. 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 Mental Status/Objective Patient Orientation: Person, Place, Time, Situation, Normal For Age Attachments: IV Current Glasses/Contacts: Yes Hearing Aids: No Dentures/Partials: No Hand Dominance: Right Upper Extremity ROM WFL BUE Upper Extremity Coordination WFL finger opposition while looking at L hand. Upper Extremity Sensation No c/o paresthesias currently Upper Extremity Strength WFL bilaterally Edema: noted non pitting edema BLE ADL-Treatment Eating (QC): 6 (Pt drinks from cup, holds with R hand, brings to face w/out difficulty) On/Off Footwear (QC): 9 (pt utilizes sock aide at home, does not have sock aide within acute room.) Toilet Transfer (QC): 6 (per pt. pt sit to stand from EOB with SBA to FWW. ) Other Treatments Pt coughing, states COPD has him coughing up phlegm. Pt able to reach tissues and bring to face. Pt's HOB raised for ease. Pt drinks with cup handed to pt, pt able to set back onto table. Pt's ROM and strength similar bilaterally. Pt educated on the importance of fast action during stroke-like symptoms and educat ed on importance of sitting upright in recliner throughout the day. Pt denies need for bathroom or to go to chair as he just transferred to bed. Pt completes bed mob with increased time, sit to stand with SBA. Pt returns to bed, sock doffed by OT (pt completes with sock aide at home), top of feet scaly/ dry. Pt educated on importance of decreasing swelling for nutrients of blood to reach skin and importance of skin care, pt states he has been utilizing antibiotic lotion for months. Pt states has not been helping. Pt's shins warm to touch, thighs not as warm. Pt denies vision changes. Pt left in bed, HOB elevated, all needs met and call light on abdomen. Education OT Patient Education: Correct positioning, Disease process, Modified ADL techniques, Purpose of tx/functional activities, Rehab process, Safety issues, Use of adapted equipment Teaching Recipient: Patient Teaching Methods: Demonstration, Discussion Response to Teaching: Verbalize Understanding, Return Demonstration OT Short Term Goals Short Term Goals 1=Demonstrate adherence to instructed precautions during ADL tasks. 2=Patient will verbalize/demonstrate understanding of assistive devices/modifications for ADL. 3=Patient will improve strength/tolerance for activity to enable patient to perform ADL's. OT [facility] Goals [facility] Goals Time Frame: Sep 08, 2019 Eating (QC): 6 Oral Hygiene (QC): 6 Shower/Bathe Self (QC): 6 Upper Body Dressing (QC): 6 Lower Body Dressing (QC): 6 On/Off Footwear (QC): 6 Toileting Hygiene (QC): 6 Toilet/Commode Transfer (QC): 6 Additional Goals: 1-Demonstrate ADL Tasks, 2-Verbalize Understanding, 3- ImproveStrength/Liz 1=Demonstrate adherence to instructed precautions during ADL tasks. 2=Patient will verbalize/demonstrate understanding of assistive devices/modifications for ADL. 3=Patient will improve strength/tolerance for activity to enable patient to perform ADL's. OT Education/Plan Problem List/Assessment Assessment: Decreased Activ Tolerance, Impaired Coordination, Impaired I ADL's, Impaired Self-Care Skills Discharge Recommendations Plan/Recommendations: Continue POC Equpiment Recommendations-D/C: Rails on Tub/Shower Patient/Family Goals return home Treatment Plan/Plan of Care Treatment,Training & Education: Yes Patient would benefit from OT for education, treatment and training to promote independence in ADL's, mobility, safety and/or upper extremity function for ADL's. Plan of Care: ADL Retraining, Functional Mobility, UE Funct Exercise/Act, UE Neuromus Re-Ed/Coord Treatment Duration: Sep 08, 2019 Frequency: 5 times per week Estimated Hrs Per Day: .25 hour per day Agreement: Yes Rehab Potential: Good Time/GCodes Start Time: 14:10 Stop Time: 14:26 Total Time Billed (hr/min): 16 Billed Treatment Time AARON Narvaez (16) ORI DE GUZMAN OTR Sep 01, 2019 15:28 POS
[2019-09-01 16:02] VITALS: BP 142/78
[2019-09-01] MEDS ORDERED: NITROGLYCERIN 0.4 MG SL TABS BTL 25'S SL PRN (16:15)
[2019-09-01 19:15] VITALS: BP 142/74
[2019-09-01] MEDS ORDERED: NON-FORMULARY MEDICATION 1 EA EA (Metoprolol Tartrate 100 MG) PO SCH (21:00)
[2019-09-01] MEDS: APIXABAN 5 MG (ELIQUIS) TABLET PO SCH (21:31)
[2019-09-01] MEDS: meTOprolol TARTRATE 50 MG (LOPRESSOR) TAB PO SCH (21:31)
[2019-09-02 00:05] VITALS: BP 143/77
[2019-09-02] MEDS: NS IV 1000 ML 1,000 ML IV SCH ×2 (00:37→10:36)
[2019-09-02 04:00] VITALS: BP 145/89
[2019-09-02] MEDS: inSUlin ASPART (NovoLOG) 1 UNIT/0.01 ML (CHARGE PER UNIT) SC SCH ×2 (06:41→11:26)
[2019-09-02 07:51] VITALS: BP 131/67
[2019-09-02] MEDS: meTOprolol TARTRATE 50 MG (LOPRESSOR) TAB PO SCH (08:10)
[2019-09-02] MEDS: APIXABAN 5 MG (ELIQUIS) TABLET PO SCH (08:10)
[2019-09-02] MEDS ORDERED: SPIRONOLACTONE 25 MG (ALDACTONE) TAB PO SCH (09:00)
[2019-09-02] MEDS ORDERED: ASPIRIN E.C. 81 MG (ECOTRIN) TAB PO SCH (09:00)
[2019-09-02] MEDS ORDERED: FUROSEMIDE 20 MG (LASIX) TAB PO SCH (09:00)
--- NOTE | 2019-09-02 09:22 | Occupational Ther Daily Note ---
OT Current Status-Daily Note Subjective Pt seated EOB at start of session, finishing breakfast. Agreeable to OT tx with focus on ADLs. Mental Status/Objective Attachments: IV ADL-Treatment Therapy Code Descriptions/Definitions Functional Sac Measure: 0=Not Assessed/NA 4=Minimal Assistance 1=Total Assistance 5=Supervision or Setup 2=Maximal Assistance 6=Modified Sac 3=Moderate Assistance 7=Complete IndependenceSCALE: Activities may be completed with or without assistive devices. 5-Mrcdhhqpnx-jfnpbxw completes the activity by him/herself with no assistance from a helper. 5-Set-up or Clean-up Assistance-helper sets up or cleans up; patient completes activity. [place] assists only prior to or following the activity. 4-Supervision or Touching Assistance-helper provides verbal cues and/or touching/steadying and/or contact guard assistance as patient completes activity. Assistance may be provided throughout the activity or intermittently. 3-Partial/Moderate Assistance-helper does LESS THAN HALF the effort. [place] lifts, holds or supports trunk or limbs, but provides less than half the effort. 2-Substantial/Maximal Assistance-helper does MORE THAN HALF the effort. [place] lifts or holds trunk or limbs and provides more than half the effort. 1-Sfqvjkcys-vhrgvg does ALL the effort. Patient does none of the effort to complete the activity. Or, the assistance of 2 or more helpers is required for the patient to complete the activity. If activity was not attempted, code reason: 7-Patient Refused. 9-Not Applicable-not attempted and the patient did not perform the activity before the current illness, exacerbation or injury. 10-Not Attempted due to Environmental Limitations-(lack of equipment, weather restraints, etc.). 88-Not Attempted due to Medical Conditions or Safety Concerns. Eating (QC): 6 (Pt able to use spoon to gather peaches, bringing spoon to mouth, and feed without concerns.) Shower/Bathe Self (QC): 3 (Pt completed sponge bath on this date, requiring assistance with washing BLE below the knee and buttocks. Pt able to wash BUE, chest, abdomen, perineal area.) Pt declined oral hygiene on this date. During sponge bath, pt unable to reach buttocks for cleansing, when asked how he performs toilet hygiene at home, pt indicates he gets into the shower to wash after BM. FOOTWEAR QC: 1 pt unable to reach feet to don/doff socks, stating he has a sock aid at home to assist. Other Treatment As pt sat EOB, he finished eating breakfast. He then completed sponge bath, UB dressing, and don/doff footwear at EOB. Pt able to stand at walker with SBA for sponge bath for cleaning buttocks. Post OT session, pt seated EOB, call light and tray table in reach and all needs met. Education OT Patient Education: Correct positioning, Energy conservation, Modified ADL techniques, Progress toward Goal/Update tx plan, Purpose of tx/functional activities, Transfer techniques Teaching Recipient: Patient Teaching Methods: Discussion Response to Teaching: Verbalize Understanding OT Short Term Goals Short Term Goals 1=Demonstrate adherence to instructed precautions during ADL tasks. 2=Patient will verbalize/demonstrate understanding of assistive devices /modifications for ADL. 3=Patient will improve strength/tolerance for activity to enable patient to perform ADL's. OT [facility] Goals [facility] Goals Time Frame: Sep 08, 2019 Eating (QC): 6 Oral Hygiene (QC): 6 Shower/Bathe Self (QC): 6 Upper Body Dressing (QC): 6 Lower Body Dressing (QC): 6 On/Off Footwear (QC): 6 Toileting Hygiene (QC): 6 Toilet/Commode Transfer (QC): 6 Additional Goals: 1-Demonstrate ADL Tasks, 2-Verbalize Understanding, 3- ImproveStrength/Liz 1=Demonstrate adherence to instructed precautions during ADL tasks. 2=Patient will verbalize/demonstrate understanding of assistive devices/modifications for ADL. 3=Patient will improve strength/tolerance for activity to enable patient to perform ADL's. OT Education/Plan Problem List/Assessment Assessment: Decreased Activ Tolerance, Decreased UE Strength, Impaired I ADL's, Impaired Self-Care Skills Discharge Recommendations Plan/Recommendations: Continue POC Treatment Plan/Plan of Care Treatment,Training & Education: Yes Patient would benefit from OT for education, treatment and training to promote independence in ADL's, mobility, safety and/or upper extremity function for ADL's. Plan of Care: ADL Retraining, Functional Mobility, UE Funct Exercise/Act, UE Neuromus Re-Ed/Coord Treatment Duration: Sep 08, 2019 Frequency: 5 times per week Estimated Hrs Per Day: .25 hour per day Agreement: Yes Rehab Potential: Good Time/GCodes Start Time: 08:12 Stop Time: 08:30 Total Time Billed (hr/min): 18 Billed Treatment Time 1, ADL JULIUS PIRES OT Sep 02, 2019 09:22 POS
[2019-09-02] MEDS ORDERED: ATOR40TA PO (09:29)
[2019-09-02] MEDS ORDERED: APIX5TAB PO (09:29)
--- NOTE | 2019-09-02 09:32 | Discharge Inst-Simple/Standard ---
Discharge Inst-Standard Reconcile Patient Problems Problems Reviewed?: Yes Discharge Medications New, Converted or Re-Newed RX: Transmitted to Pharmacy Patient Instructions/Follow Up Plan of Care/Instructions/FU: Please continue to take her medications as written. Please follow-up with Dr. Saleem in the next week to follow up this hospital stay and with Dr. Stallworth in the next 2 weeks. Activity as Tolerated: Yes Discharge Diet: ADA Diet Return to The Hospital For: Chest pain, shortness of breath, palpitations, slurred speech or weakness, if you feel you're getting worse. GUMARO CASTELLANOS MD Sep 02, 2019 09:32 POS
--- NOTE | 2019-09-02 09:33 | Discharge Summary ---
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 Status: Acute (2) Left-sided weakness Status: Acute (3) Non-insulin dependent type 2 diabetes mellitus Status: Chronic (4) Essential (primary) hypertension Status: Chronic Discharge Summary Discharge Physical Exam Allergies: Coded Allergies: Sulfa (Sulfonamide Antibiotics) (Verified Allergy, Unknown, 06/02/06) benzocaine (Verified Allergy, Unknown, ALLERGIC TO "NED", 06/02/06) Uncoded Allergies: NED (Allergy, Unknown, 06/02/06) LOCAL ANESTHETICS (Allergy, Unknown, 06/02/06) Vitals & I&Os Vital Signs Date Time Temp Pulse Resp B/P (MAP) Pulse Ox O2 Delivery O2 Flow Rate FiO2 09/02/19 08:00 91 Room Air 09/02/19 07:51 36.3 110 20 131/67 (88) Hospital Course Labs (last 24 hrs) Laboratory Tests 09/01/19 11:12: Glucometer 237H 09/01/19 16:06: Glucometer 226H 09/01/19 20:57: Glucometer 201H 09/02/19 05:25: Glucometer 198H Patient resulted labs reviewed. Pending Labs Laboratory Tests 09/02/19 05:25: Glucometer 198 Imaging: Reviewed Imaging Report Discharge Home Medications: Active Scripts Active Eliquis (Apixaban) 5 Mg Tablet 5 Mg PO BID Lipitor (Atorvastatin Calcium) 40 Mg Tablet 40 Mg PO HS Reported Aleve (Naproxen Sodium) 220 Mg Tablet 220 Mg PO Q8H PRN Fish Oil 1,200 mg Fish Oil (Fish Oil/Dha/Epa) 1 Each Capsule 1,200 Mg PO DAILY Warfarin Sodium 5 Mg Tablet 7.5 Mg PO MOTUWETHFR Spironolactone 25 Mg Tablet 25 Mg PO DAILY Metoprolol Tartrate 100 Mg Tablet 100 Mg PO BID Atorvastatin Calcium 20 Mg Tablet 20 Mg PO DAILY Furosemide 20 Mg Tablet 20 Mg PO DAILY Aspirin EC (Aspirin) 81 Mg Tablet.dr 81 Mg PO HS Nitroglycerin 0.4 Mg Tab.subl 0.4 Mg SL UD PRN Warfarin Sodium 5 Mg Tablet 5 Mg PO SUSA Instructions to patient/family Please see electronic discharge instructions given to patient. Clinical Quality Measures DVT/VTE Risk/Contraindication: Risk Factor Score Per Nursin RFS Level Per Nursing on Admit: 4+=Very High Stroke: Date of last known well: Aug 31, 2019 Time of last known well: 07:00 (Woke up with symptoms) GUMARO CASTELLANOS MD Sep 02, 2019 09:33 POS
--- NOTE | 2019-09-02 10:05 | Physical Therapy Daily Note ---
PT Daily Note-Current Subjective Patient agrees to PT at this time. Patient feels much better than yesterday and feels he is ready to go home soon. Pain Numeric Pain Scale: 0-No Pain Location: No Pain Reported Mental Status Patient Orientation: Normal For Age Attachments: IV Transfers SCALE: Activities may be completed with or without assistive devices. 2-Ioxzwiaimz-wnnuihy completes the activity by him/herself with no assistance from a helper. 5-Set-up or Clean-up Assistance-helper sets up or cleans up; patient completes activity. [place] assists only prior to or following the activity. 4-Supervision or Touching Assistance-helper provides verbal cues and/or touching/steadying and/or contact guard assistance as patient completes activity. Assistance may be provided throughout the activity or intermittently. 3-Partial/Moderate Assistance-helper does LESS THAN HALF the effort. [place] lifts, holds or supports trunk or limbs, but provides less than half the effort. 2-Substantial/Maximal Assistance-helper does MORE THAN HALF the effort. [place] lifts or holds trunk or limbs and provides more than half the effort. 8-Lfnwprntv-rsmgou does ALL the effort. Patient does none of the effort to complete the activity. Or, the assistance of 2 or more helpers is required for the patient to complete the activity. If activity was not attempted, code reason: 7-Patient Refused. 9-Not Applicable-not attempted and the patient did not perform the activity before the current illness, exacerbation or injury. 10-Not Attempted due to Environmental Limitations-(lack of equipment, weather restraints, etc.). 88-Not Attempted due to Medical Conditions or Safety Concerns. Sit to Stand (QC): 5 Weight Bearing Right Lower Extremity: Right Weight Bearing/Tolerated Left Lower Extremity: Left Weight Bearing/Tolerated Gait Training Does the Patient Walk?: Yes Distance: 400' Walk 10 feet (QC): 5 Walk 50 ft with 2 Turns(QC): 4 Walk 150 ft (QC): 4 Gait Assistive Device: FWW Patient ambulates well with CGA, occasionally has slight LOB or misstep during turns or maneuvering walker. Exercises Seated Therapy Exercises: Ankle pumps, Long arc quads, Hip flexion Seated Reps: 10 Assessment Patient seated at EOB and performed seated exercises well, showing no significant difference between LE. Patient ambulated 400' CGA with FWW with occasional slight LOB or misstep during turns or when maneuvering walker, since patient is not used to walking wiht FWW. Patient returned to sitting EOB at conclusion of treatment. PT Data Operations Director Goals Group Home Goals PT Group Home Goals Time Frame: Sep 12, 2019 Sit to Lying (QC): 6 Lying-Sitting on Side/Bed(QC): 6 Sit to Stand (QC): 6 Roll Left to Right (QC): 6 Chair/Tml-qu-Cpnmf Xfer(QC): 6 Car Transfer (QC): 6 Does the Patient Walk: Yes Distance: 300' Walk 10 feet (QC): 6 Walk 10ft-Uneven Surface(QC): 6 Walk 50ft with 2 Turns (QC): 6 Walk 150 ft (QC): 6 Gait Assistive Device: FWW PT Plan Treatment/Plan Treatment Plan: Continue Plan of Care Treatment Plan: Bed Mobility, Education, Functional Activity Liz, Functional Strength, Gait, Safety, Therapeutic Exercise, Transfers Treatment Duration: Sep 12, 2019 Frequency: 6 times per week Estimated Hrs Per Day: .25 hour per day Patient and/or Family Agrees t: Yes Time/GCodes Time In: 858 Time Out: 914 Total Billed Treatment Time: 16 Total Billed Treatment 1 visit FA 16min CORNELIUS COSME PT Sep 02, 2019 10:05 POS
--- NOTE | 2019-09-02 10:08 | NUR ---
IRF Evaluation Order received to evaluate patient for the ARU. Chart review complete and it appears patient is ambulating (400ft, FWW) and completing sit to stand with supervision; therefore, patient does not require intensive therapies at this time. Thank you for this referral.
--- NOTE | 2019-09-02 10:15 | NUR ---
CM/SS spoke with the patient to assess for financial needs upon discharge. The patient states he has Medicare but not Medicaid and would like apply due to being denied previously by a small amount. CM/SS told the patient that Financial services would be contacted to assist with that. The patient states that he does not have problems affording his medications because there is not a co-pay. The patient verbalized that he had his CPAP machine and a back up and that there were no other medical equipment needs at this time. Will continue to follow. Addendum: 09/02/19 at 1229 by COCO DOMINGUEZ welcome center attendant student note approved by Coco dominguez [facility]
[2019-09-02] MEDS ORDERED: GUAI600T43 PO (10:28)
--- NOTE | 2019-09-02 11:43 | NUR ---
Initial visit by [employer] Operatorsylvia Tesfaye: Pt is Taoism. Engaged in rapport building and introduced Spiritual Care services. No follow up needs reported to department. Pt anticipated for discharge. Admitted for stroke with left side deficit.
[2019-09-02 15:00] VITALS: BP 131/67
[2019-09-02 15:05] VITALS: BP 138/68
--- NOTE | 2019-09-02 16:00 | NUR ---
KARI KATZ demonstrates understanding of discharge instructions and accurately returns instructions upon questioning. Copy of Post-Discharge Instructions given to PT. KARI KATZ is able to manage continuing needs after discharge WITH ASSISTANCE OF HOME HEALTH. Patients belongings returned to PT. Patient discharged from [facility] on 09/02/19 at 1600. KARI KATZ left floor via W/C, accompanied by STAFF AND FRIEND PER AUTO.
--- NOTE | 2019-09-02 16:37 | Progress Note - Cardiology ---
Cardiology SOAP Progress Note Subjective: No cp or palp or syncope Chronic shortness of breath at usual baseline Feels L-sided numbness has improved Objective: I&O/Vital Signs 09/02/19 09/02/19 09/02/19 09/02/19 06:57 07:51 08:00 12:47 Temp 36.3 Pulse 107 110 83 Resp 20 B/P (MAP) 131/67 (88) Pulse Ox 91 91 O2 Delivery NIV CPAP Room Air 09/02/19 15:00 Temp 36.3 Pulse 83 Resp 20 B/P (MAP) 131/67 Pulse Ox 91 O2 Delivery Room Air 09/02/19 00:00 Intake Total 2090 ml Output Total 1650 ml Balance 440 ml Weight (Pounds): 287 Weight (Calculated Kilograms): 130.543150 Constitutional: AAO x 3, well-developed, well-nourished Respiratory: No accessory muscle use; other (fair to good, bilateral air entry that is diminished at the bases) Cardiovascular: irregularly irregular, S1 and S2, systolic murmur (soft JOSEF at card base) Gastrointestional: No tender; soft; No guarding, No rebound; audible bowel sounds Extremities: swelling (moderate, bilateral, pitting and non-pitting edema of the legs); No clubbing, No cyanosis Neurologic/Psychiatric: oriented x 3, other (moves all limbs equally at the time of this exam) Skin: No rash, No ulcerations Results/Procedures: Labs Laboratory Tests 09/01/19 20:57: Glucometer 201H 09/02/19 05:25: Glucometer 198H 09/02/19 11:19: Glucometer 345H A/P: Assessment: CVA consisting of L hemiparesis on 08/31/19. CT angio of head and neck on 08/31/19: Occlusion of the intrathecal right vertebral at its proximal and middle one-thirds. Patency of the intrathecal left vertebral and basilar. Right greater than left carotid calcified plaques without high-grade stenosis. The anterior circulation shows no thrombusor large vessel occlusion. Chronic permanent atrial fibrillation. Chronic anticoagulation for stroke prophylaxis with warfarin has been managed by his pcp Dr. Saleem Chronic exertional dyspnea, probably multifactorial: history of chronic obstru ctive pulmonary disease, probably asthma and has had intermittent congestive heart failure, but congestive heart failure currently appears controlled. Postural dizziness, resolved following reduction in DEEP inhibitors. Chronic bilateral lower extremity edema, likely related to venous insufficiency Chronic obstructive pulmonary disease responsive to bronchodilator therapy based on pulmonary function tests of 03/20/10. He is relatively intolerant to bronchodilator therapy. Coronary artery disease with a history of stenting of the left circumflex artery in October 2002. Last cardiac catheterization of February 2010 shows moderate ectasia of the coronary vessels with mild diffuse coronary plaque. There is a widely patent stent in the proximal and mid left circumflex artery. MPI of 10/10/14 showed no ischmia or infarction and LVEF was 80% Echo of 09/02/19 showed LVEF 50-55%, mild to mod TR and MR, moderate to severe enlargement of LA, grade 2 diastolic dysfunction, RVSP 35 mmHg, no evidence of any significant intracardiac shunt Hypertension with hypertensive cardiovascular disease. No significant renal artery stenosis on renal artery angiography of August 2004. Moderate mitral regurgitation. Ankylosing spondylitis. Hyperlipidemia being treated with lovastatin. The patient has tolerated that well on a chronic basis. This is followed by Dr. Saleem Maturity onset diabetes mellitus. Mild carotid arterial disease without evidence of hemodynamic or significant stenosis per carotid ultrasound of 08/10/15 Plan: * I discussed his case with Dr Botello this am * Speaking purely from a cardiac standpoint, we recommend oral anticoag for permanent A Fib and ASA for CAD * Outpt cardiac f/u advised Clinical Quality Measures Stroke: Date of last known well: Aug 31, 2019 Time of last known well: 07:00 (Woke up with symptoms) CRISTIANO MIN MD FACP FAC CCDS Sep 02, 2019 16:37 POS
== END 2019-09-02 16:00 | disposition home health service (06) | DRG 65 ==
LOC: EDUNIT# 13:41 → ER 13:43 → 4TH 16:13
PROVIDERS: ADMIT Family Medicine; ATTEND Family Medicine
DX: I63.211 Cerebral infarction due to unspecified occlusion or stenosis of right vertebral artery (principal); G81.94 Hemiplegia, unspecified affecting left nondominant side; R47.81 Slurred speech; R47.02 Dysphasia; E11.40 Type 2 diabetes mellitus with diabetic neuropathy, unspecified; I48.21 Permanent atrial fibrillation; I11.0 Hypertensive heart disease with heart failure; I50.9 Heart failure, unspecified; R29.703 NIHSS score 3; I25.10 Atherosclerotic heart disease of native coronary artery without angina pectoris; J44.9 Chronic obstructive pulmonary disease, unspecified; I87.2 Venous insufficiency (chronic) (peripheral); E78.5 Hyperlipidemia, unspecified; K57.90 Diverticulosis of intestine, part unspecified, without perforation or abscess without bleeding; I34.0 Nonrheumatic mitral (valve) insufficiency; M45.9 Ankylosing spondylitis of unspecified sites in spine; I25.2 Old myocardial infarction; Z95.5 Presence of coronary angioplasty implant and graft; Z88.2 Allergy status to sulfonamides; Z79.01 Long term (current) use of anticoagulants; Z79.84 Long term (current) use of oral hypoglycemic drugs; Z87.891 Personal history of nicotine dependence
CPT/HCPCS: 36415; 70496; 70498; 71045; 80053; 80061; 81000; 82962; 84484; 85025; 85379; 85610; 85730; 93005; 93041; 93306

== ENCOUNTER 2021-09-24 05:34 | Outpatient (CLI) | payer MEDICARE ==
[~2021-09-24] VITALS: Ht 170.2 cm; Wt 113.6 kg
[~2021-09-24 05:34] MED LIST changes: +APIX5TAB PO; +ASPI-1238 PO; +ATOR40TA PO; +FURO20TA4 PO; +GUAI600T43 PO; +METO100T12 PO; +NAPR220T66 PO; +NITR0.4T39 SL; +SPIR25TA5 PO; +WARF-48 PO
[2021-09-24] MEDS ORDERED: APIX5TAB PO (15:03)
[2021-09-24] MEDS ORDERED: GLIM2TAB4 PO (15:03)
== END 2021-09-24 15:15 | disposition home or self-care (01) ==
LOC: PREOP 05:34
PROVIDERS: ATTEND Specialist
DX: Z01.818 Encounter for other preprocedural examination (principal)

== ENCOUNTER 2021-09-27 10:43 | Day surgery (SDC) | payer MEDICARE ==
[~2021-09-27] VITALS: Ht 170 cm; Wt 113.6 kg
[~2021-09-27 10:43] MED LIST changes: +GLIM2TAB4 PO
[2021-09-27] MEDS ORDERED: PHENYLEPHRINE 10% OPHTH (NEO-SYN) 5 ML BTL OU PRN (11:15)
[2021-09-27] MEDS ORDERED: TROPICAMIDE 1% OPH SOLN (MYDRIACYL) 15 ML BTL OU PRN (11:15)
[2021-09-27] MEDS ORDERED: TETRACAINE 0.5% OPHTH SOLN 4 ML BTL (SINGLE DOSE ONLY) OU PRN (11:15)
--- NOTE | 2021-09-27 11:17 | Ophthalmologist Pre-Op Note ---
Pre-Operative Progress Note H&P Reviewed The H&P was reviewed, patient examined and no changes noted. Date H&P Reviewed: Sep 27, 2021 Time H&P Reviewed: 11:17 Pre-Op Dx Secondary Cataract, Right Eye SHIRA PHIPPS MD Sep 27, 2021 11:17
[2021-09-27 11:23] VITALS: BP 117/74
--- NOTE | 2021-09-27 12:09 | Ophthalmology Operative Report ---
YAG Capsulotomy PREOPERATIVE DIAGNOSIS: Secondary Cataract Left Eye POSTOPERATIVE DIAGNOSIS: Secondary Cataract Left Eye PROCEDURE: YAG Capsulotomy, left eye SURGEON: Sohail Phipps ANESTHESIA: Topical anesthesia COMPLICATIONS: None ESTIMATED BLOOD LOSS: Minimal DESCRIPTION OF PROCEDURE: After proper informed consent was obtained, the patient's, a 81 male left eye received one drop of Tropicamide and one drop of Tetracaine. The patient was then placed at the YAG laser and using a power of [4.5 ] millijoules and [17 ] bursts were used to fashion a central capsulotomy. The patient tolerated the procedure well without complications. SOHAIL PHIPPS MD Sep 27, 2021 12:09
== END 2021-09-27 11:45 | disposition home or self-care (01) ==
LOC: SDC 10:43
PROVIDERS: ATTEND Specialist
DX: E11.36 Type 2 diabetes mellitus with diabetic cataract (principal); H26.492 Other secondary cataract, left eye; I11.9 Hypertensive heart disease without heart failure; E78.00 Pure hypercholesterolemia, unspecified; H91.90 Unspecified hearing loss, unspecified ear; Z87.891 Personal history of nicotine dependence; Z96.652 Presence of left artificial knee joint; Z86.73 Personal history of transient ischemic attack (TIA), and cerebral infarction without residual deficits

== ENCOUNTER 2022-09-09 05:40 | Outpatient (CLI) | payer MEDICARE ==
[~2022-09-09] VITALS: Ht 167.7 cm; Wt 119.1 kg
[2022-09-09] MEDS ORDERED: ACHD5005 PO (17:07)
[2022-09-09] MEDS ORDERED: ATOR40TA70 PO (17:07)
[2022-09-09] MEDS ORDERED: ACET-11 PO (17:07)
[2022-09-09] MEDS ORDERED: FISH1CAP15 PO (17:07)
== END 2022-09-10 09:57 | disposition home or self-care (01) ==
LOC: PREOP 05:40
PROVIDERS: ATTEND Specialist
DX: Z01.818 Encounter for other preprocedural examination (principal)

== ENCOUNTER 2022-09-12 08:59 | Day surgery (SDC) | payer MEDICARE ==
[~2022-09-12] VITALS: Wt 119.1 kg
[~2022-09-12 08:59] MED LIST changes: +ACET-11 PO; +ACHD5005 PO; +ATOR40TA70 PO
[2022-09-12] MEDS ORDERED: TROPICAMIDE 1% OPH SOLN (MYDRIACYL) 15 ML BTL OU PRN (09:15)
[2022-09-12] MEDS ORDERED: PHENYLEPHRINE 10% OPHTH (NEO-SYN) 5 ML BTL OU PRN (09:15)
[2022-09-12] MEDS ORDERED: TETRACAINE 0.5% OPHTH SOLN 4 ML BTL (SINGLE DOSE ONLY) OU PRN (09:15)
[2022-09-12 09:25] VITALS: BP 138/72
[2022-09-12 09:42] VITALS: BP 138/72
--- NOTE | 2022-09-12 09:47 | Ophthalmologist Pre-Op Note ---
Pre-Operative Progress Note H&P Reviewed The H&P was reviewed, patient examined and no changes noted. Date H&P Reviewed: Sep 12, 2022 Time H&P Reviewed: 09:47 Pre-Op Dx Secondary Cataract, Right Eye SHIRA PHIPPS MD Sep 12, 2022 09:47
--- NOTE | 2022-09-12 10:19 | Ophthalmology Operative Report ---
YAG Capsulotomy PREOPERATIVE DIAGNOSIS: Secondary Cataract Right Eye POSTOPERATIVE DIAGNOSIS: Secondary Cataract Right Eye PROCEDURE: YAG Capsulotomy, right eye SURGEON: Sohail Phipps ANESTHESIA: Topical anesthesia COMPLICATIONS: None ESTIMATED BLOOD LOSS: Minimal DESCRIPTION OF PROCEDURE: After proper informed consent was obtained, the patient's, a 82 male, right eye received one drop of Tropicamide and one drop of Tetracaine. The patient was then placed at the YAG laser and using a power of [3.5 ] millijoules and [ 15] bursts were used to fashion a central capsulotomy. The patient tolerated the procedure well without complications. SOHAIL PHIPPS MD Sep 12, 2022 10:19
== END 2022-09-12 09:44 | disposition home or self-care (01) ==
LOC: SDC 08:59 → EDSTATUS 15:15
PROVIDERS: ATTEND Specialist
DX: H26.40 Unspecified secondary cataract (principal)